=== PATIENT | male | born 1995 | race African-American/Black ===

== ENCOUNTER 2020-09-08 10:08 | Emergency (ER) | payer MEDICAID ==
[~2020-09-08] VITALS: Ht 175.3 cm; Wt 82.0 kg
[2020-09-08] MEDS ORDERED: MAGNESIUM/ALUMINUM HYDROXIDE/SIMETHICONE 30ML UDC PO STA (10:36)
[2020-09-08] MEDS ORDERED: ONDANSETRON HCL 4MG/2ML INJ IV STA ×2 (10:36→13:46)
[2020-09-08] MEDS ORDERED: DICYCLOMINE 10 MG/5 ML ORAL SYR PO STA (10:36)
[2020-09-08] MEDS ORDERED: SODIUM CHLORIDE 0.9% 1,000 ML IV ONE (10:45)
[2020-09-08 10:53] LABS: BASOPHILS % 0.6 % (0.0-2.0); EOSINOPHILS % 0.2 % (0.0-5.0); HEMATOCRIT. 51.6 % (42.0-52.0); HEMOGLOBIN. 17.6 g/dL (14.0-18.0); LYMPHOCYTES % 19.6 % (20.0-50.0); MEAN CORPUSCULAR HEMOGLOBIN 27.7 pg (28.0-32.0); MEAN CORPUSCULAR VOLUME 81.2 fL (80.0-94.0); MEAN PLATELET VOLUME 8.8 fl (7.4-10.4); MONOCYTES % 5.4 % (2.0-8.0); NEUTROPHILS % 74.2 % (40.0-76.0); PLATELET 177 x1000/uL (130-400); RED BLOOD CELL COUNT 6.36 mill/uL (4.7-6.1); RED CELL DISTRIBUTION WIDTH 14.4 % (11.6-14.6)
[2020-09-08 11:00] LABS: CHLORIDE 100 mEq/L (98-107)
[2020-09-08 11:04] LABS: ETHANOL BLOOD < 10 mg/dL
[2020-09-08] MEDS ORDERED: MORPHINE SULFATE 4 MG/ML CPJ (NOT FOR IM USE) IV STA (13:46)
[2020-09-08 15:34] LABS: CLARITY URINE CLOUDY (CLEAR); COLOR URINE YELLOW (YELLOW); KETONES URINE NEGATIVE (NEGATIVE); LEUKOCYTE ESTERASE URINE NEGATIVE (NEGATIVE); NITRITE URINE NEGATIVE (NEGATIVE); OCCULT BLOOD URINE NEGATIVE (NEGATIVE); PH URINE >=9.0 (4.5-8.0); PROTEIN URINE 1+ (NEGATIVE); SPECIFIC GRAVITY URINE 1.019 (1.005-1.030)
[2020-09-08 15:56] LABS: *BENZODIAZEPINES SCREEN URINE NEGATIVE (NEGATIVE); *COCAINE SCREEN URINE NEGATIVE (NEGATIVE); CANNABINOID URINE SCREEN PRESUMTIVE POSITIVE (NEGATIVE); METHADONE URINE SCREEN NEGATIVE (NEGATIVE); PHENCYCLIDINE URINE SCREEN NEGATIVE (NEGATIVE)
[2020-09-08 15:57] LABS: *AMPHETAMINES SCREEN URINE NEGATIVE (NEGATIVE); OPIATES URINE SCREEN NEGATIVE (NEGATIVE)
[2020-09-08 16:00] VITALS: BP 155/88
[2020-09-08 16:06] LABS: *BARBITURATES SCREEN URINE NEGATIVE (NEGATIVE)
== END 2020-09-08 16:50 | disposition left against medical advice (07) ==
LOC: ER 10:08 → EDBEDREQSVC 15:26 → ER 16:50 → CANBEDREQ 16:57
DX: K85.90 Acute pancreatitis without necrosis or infection, unspecified (principal); F17.200 Nicotine dependence, unspecified, uncomplicated; F12.10 Cannabis abuse, uncomplicated
CPT/HCPCS: 36415; 74176; 80053; 80305; 80320; 81003; 83690; 85025; 93005; 96361; 96374; 96375; 96376; 99285; J2270; J2405; J7030; Z7610; G0480